=== PATIENT | male | born 1945 | race American Indian/Alaskan Native ===

== ENCOUNTER 2021-12-29 08:40 | Outpatient (CLI) | payer MEDICARE ==
--- NOTE | 2021-12-29 11:25 | Ultrasound Report ---
ULTRASOUND ABDOMEN, COMPLETE INDICATION / CLINICAL INFORMATION: R94.5 ABNORMAL RESULTS OF LIVER FUNCTION STUDIES. COMPARISON: None available. FINDINGS: PANCREAS: No significant abnormality. ABDOMINAL AORTA: No significant abnormality. IVC: No significant abnormality. LIVER: Liver is heterogeneous measures 15.7 cm GALLBLADDER: No significant abnormality. BILE DUCTS: No significant abnormality. Common bile duct measures mm. KIDNEYS: Right: Renal cyst measures 2.6 cm Left: Renal cyst measures 2.7 cm SPLEEN: No significant abnormality. FREE FLUID: None. ADDITIONAL FINDINGS: None. IMPRESSION: 1. Bilateral renal cysts. Heterogeneous liver. Signer Name: Gilmer Choe MD Signed: 12/29/2021 11:21 AM Workstation Name: [id number]
== END 2021-12-29 08:41 | disposition home or self-care (01) ==
LOC: US 08:40
PROVIDERS: ATTEND Internal Medicine
DX: N28.1 Cyst of kidney, acquired (principal); R94.5 Abnormal results of liver function studies
CPT/HCPCS: 76700

== ENCOUNTER 2022-05-04 09:52 | Outpatient (CLI) | payer MEDICARE ==
[2022-05-04 12:43] LABS: Basophils % (Auto) 0.7 % (0.0-1.8); Eosinophils # (Auto) 0.1 K/mm3 (0.0-0.4); Eosinophils % (Auto) 1.9 % (0.0-4.3); Hematocrit 41.2 % (35.5-45.6); Hemoglobin 13.7 gm/dl (11.8-15.2); Lymphocytes # (Auto) 2.1 K/mm3 (1.2-5.4); Lymphocytes % (Auto) 37.6 % (13.4-35.0); Mean Corpuscular HGB Conc 33 % (32-34); Mean Corpuscular Volume 86 fl (84-94); Monocytes # (Auto) 0.6 K/mm3 (0.0-0.8); Platelet Count 212 K/mm3 (140-440); Red Blood Count 4.76 M/mm3 (3.65-5.03); Red Cell Distribution Width 13.9 % (13.2-15.2)
[2022-05-04 12:55] LABS: Alanine Aminotransferase 27 units/L (7-56); Albumin 4.5 g/dL (3.9-5); BUN/Creatinine Ratio 13; Blood Urea Nitrogen 15 mg/dL (9-20); Calcium 9.6 mg/dL (8.4-10.2); Chol/HDL Ratio 2.78 %; HDL Cholesterol 55 mg/dL (40-59); Hemolysis Index 12; LDL Cholesterol,Direct 88 mg/dL (50-130)
[2022-05-04 16:02] LABS: Creatinine,Urine 71.7 mg/dL (0.1-20.0)
[2022-05-04 16:10] LABS: Microalbumin/Creatinine Ratio 16.7 ug/mg
== END 2022-05-04 09:53 | disposition home or self-care (01) ==
LOC: LABHHL 09:52
PROVIDERS: ATTEND Internal Medicine
DX: E11.22 Type 2 diabetes mellitus with diabetic chronic kidney disease (principal); E55.9 Vitamin D deficiency, unspecified; R94.5 Abnormal results of liver function studies; N18.9 Chronic kidney disease, unspecified; Z00.00 Encounter for general adult medical examination without abnormal findings
CPT/HCPCS: 36415; 80053; 80061; 82043; 82306; 83036; 84443; 85025